=== PATIENT | female | born 1980 | race Caucasian/White ===

== ENCOUNTER 2021-06-02 10:10 | Outpatient (CLI) | payer BC | END 2021-06-02 23:59 | disposition home or self-care (01) | LOC: LAB.N 10:10 | PROVIDERS: ATTEND Family Medicine | DX: R07.0 Pain in throat (principal); R09.81 Nasal congestion; Z20.822 Contact with and (suspected) exposure to COVID-19 | CPT/HCPCS: 86927; 87070 ==